=== PATIENT | female | born 1995 | race Caucasian/White ===

== ENCOUNTER 2016-08-29 12:06 | Emergency (ER) | payer BC ==
[~2016-08-29] VITALS: Ht 152.4 cm; Wt 54.0 kg
[2016-08-29 12:08] VITALS: TEMP 36.7; Ht 152.4 cm; Wt 54.0 kg
[2016-08-29] MEDS ORDERED: RABIES VACCINE (IMOVAX) HUMAN DIPL CELL 2.5 INTER.UNIT/ML SYR IM. ONE (12:45)
[2016-08-29] MEDS ORDERED: PRED10TA PO (12:53)
[2016-08-29] MEDS ORDERED: NORT25CA PO (12:53)
--- NOTE | 2016-08-29 12:56 | EMERGENCY ROOM VISIT NOTE ---
History First contact with patient: 12:13 Chief Complaint: RABIES VACCINE Stated Complaint: SCRATCHED BY RABID RACCOON History of Present Illness The patient is a 20 year old female who presents to the Emergency Room via private vehicle with complaints of "scratch by rabid raccoon". The patient states that while volunteering at [employer], she was scratched by a raccoon, and handled the raccoon in which was found to be positive for rabies. She was handling these animals approximately one week ago, and found the raccoon had rabies yesterday. She has already been through the prophylaxis for rabies preemptively, and is here for postexposure vaccination. She does have a history of ulcerative colitis, but at this time is not taking any immunomodulating drugs. She is afebrile, denies any symptoms at this time and her tetanus is up-to-date. Review of Systems A complete 6-point Review of Systems was discussed with the patient, with pertinent positives and negatives listed in the History of Present Illness. All remaining Review of Systems questions can be considered negative unless otherwise specified. Past Medical/Surgical History History of colitis, hypoglycemia, asthma, stomach problems, ulcers, gallbladder Family History Cancer, rheumatoid arthritis Social History Smoking Status: Never Smoker Social History: Patient lives with self. She is currently employed. Current/Historical Medications Scheduled Nortriptyline (Pamelor), 25 MG PO DAILY Prednisone Tab (Prednisone), Unknown Dose PO UD Allergies Coded Allergies: No Known Allergies (Unverified , 08/29/16) Physical Exam Vital Signs Date Time Temp Pulse Resp B/P (MAP) Pulse Ox O2 Delivery O2 Flow Rate FiO2 08/29/16 13:02 78 18 115/72 100 08/29/16 12:08 36.7 80 18 112/75 100 Room Air Physical Exam VITAL SIGNS - Vital signs and nursing notes were reviewed. GENERAL -20-year-old female appearing her stated age who is in no acute distress. Communicates well with provider and answers questions appropriately. SKIN - Without rashes. Small well-healed abrasions noted to the ventral aspect of the distal forearms. No active bleeding or evidence of infection. Medical Decision & Procedures Medications Administered Medications (Trade) Dose Ordered Sig/Nava Route Start Time Stop Time Status Last Admin Dose Admin Rabies Vaccine Human Diploid Cell (Imovax Rabies) 2.5 interunit ONCE ONCE IM. 08/29/16 12:45 08/29/16 12:46 DC 08/29/16 12:58 2.5 INTERUNIT Medical Decision Patient was seen and evaluated as above. After obtaining a thorough history and physical examination it was identified that the patient had already gone through the rabies prophylactic immunization series, and has documentation of such. I did discuss case with the pharmacist, and current CDC guidelines do recommend items such as Imovax 2. It is recommended on day 0 and a 3. Patient was given Imovax today, and was informed that she should come back on September 01 for the subsequent and last injection. She is to watch for signs of rabies. She was educated upon worrisome symptoms in which to return, had questions prior to discharge, and was discharged home in good condition vision. In the evaluation treatment this patient following differential diagnoses were entertained: Prophylactic need for postexposure of rabies. Impression Primary Impression: Rabies exposure Additional Impression: Rabies, need for prophylactic vaccination against Departure Information Dispostion Home / Self-Care Condition GOOD Referrals No Doctor, Assigned (PCP) Patient Instructions [facility] Additional Instructions You were seen in the emergency department after sustaining a scratch from a raccoon that has been found to have rabies. At this time because you've already had previous vaccination, we are going to give you the Imovax today, and recommend that you return on day 3. Today's considered to be day 0, therefore we recommended to return on Thursday, September 01. Please return the emergency Department and state your here for your second vaccination which will be the total in the series. Please contact your organization, to notify them of today's vaccination. Please return to emergency department with any new/concerning symptoms. Problem Qualifiers
[2016-08-29 13:02] VITALS: BP 115/72; PULSE 78; O2SAT 100
== END 2016-08-29 13:04 | disposition home or self-care (01) ==
LOC: C.EDB 12:07 → C.EDD 13:04
DX: Z20.3 Contact with and (suspected) exposure to rabies (principal); Z23 Encounter for immunization; Z79.899 Other long term (current) drug therapy; W55.59XA Other contact with raccoon, initial encounter

== ENCOUNTER 2016-09-01 16:19 | Emergency (ER) | payer BC ==
[~2016-09-01] VITALS: Ht 152.4 cm; Wt 52.8 kg
[~2016-09-01 16:19] MED LIST: NORT25CA PO; PRED10TA PO
[2016-09-01 16:26] VITALS: BP 97/67; TEMP 36.8; Ht 152.4 cm; Wt 52.8 kg
[2016-09-01] MEDS ORDERED: RABIES VACCINE (IMOVAX) HUMAN DIPL CELL 2.5 INTER.UNIT/ML SYR IM. ONE (17:45)
[2016-09-01] MEDS ORDERED: NORT50CA PO (18:09)
[2016-09-01 18:19] VITALS: PULSE 77; O2SAT 98
--- NOTE | 2016-09-02 00:58 | EMERGENCY ROOM VISIT NOTE ---
History First contact with patient: 17:34 Chief Complaint: RABIES VACCINE REPEAT VISIT Stated Complaint: 2ND RABIES VACCINE History of Present Illness The patient is a 20 year old female who presents to the Emergency Room for her second and final Imovax injection. The patient was scratched by a raccoon that was tested positive for rabies. She has undergone the preexposure rabies prophylaxis series. She denies any adverse reactions from her Imovax injection 3 days ago. Review of Systems 6 system review was performed and was negative except for pertinent positives and negatives as indicated in history of present illness Past Medical/Surgical History Well documented on previous visit Social History Smoking Status: Never Smoker Alcohol Use: occasionally Marital Status: single Occupation Status: employed Current/Historical Medications Scheduled Nortriptyline (Pamelor), 50 MG PO HS Prednisone Tab (Prednisone), Unknown Dose PO UD Allergies Coded Allergies: No Known Allergies (Unverified , 08/29/16) Physical Exam Vital Signs Date Time Temp Pulse Resp B/P (MAP) Pulse Ox O2 Delivery O2 Flow Rate FiO2 09/01/16 18:19 77 18 98 09/01/16 16:26 36.8 70 16 97/67 99 Room Air Pain Rating (0-10): 0 Physical Exam CONSTITUTIONAL: Healthy and well nourished. HEENT: Normocephalic, atraumatic. Pupils equal, round and reactive. INTEGUMENTARY: No rash or other significant dermatologic conditions noted. NEUROLOGIC: No focal neurologic deficits noted. Medical Decision & Procedures Medications Administered Medications (Trade) Dose Ordered Sig/Nava Route Start Time Stop Time Status Last Admin Dose Admin Rabies Vaccine Human Diploid Cell (Imovax Rabies) 2.5 interunit ONCE ONCE IM. 09/01/16 17:45 09/01/16 17:46 DC 09/01/16 18:09 2.5 INTERUNIT ED Course Vital signs were reviewed and were normal. The patient was administered Imovax without adverse reaction. The patient was instructed to return for any adverse reaction to her injections. She denied any pain at the time of discharge. Medical Decision Impression Primary Impression: Need for prophylactic vaccination against rabies Departure Information Dispostion Home / Self-Care Condition GOOD Forms HOME CARE DOCUMENTATION FORM, IMPORTANT VISIT INFORMATION Patient Instructions [facility] Additional Instructions Return to the emergency department for any adverse reactions to your vaccinations
== END 2016-09-01 18:20 | disposition home or self-care (01) ==
LOC: C.EDB 16:20 → C.EDD 18:20
DX: Z23 Encounter for immunization (principal); Z20.3 Contact with and (suspected) exposure to rabies